=== PATIENT | female | born 1995 | race Two or more races ===

== ENCOUNTER 2022-06-28 05:21 | Emergency (ER) | payer OTHER ==
[~2022-06-28] VITALS: Ht 157.5 cm; Wt 52.2 kg
[2022-06-28 06:21] VITALS: BP 113/69
--- NOTE | 2022-06-28 06:21 | NUR ---
DR. JERMAN WAY AT PT'S BEDSIDE
--- NOTE | 2022-06-28 06:21 | NUR ---
BIBS FOR C/O SORETHROAT X 3 DAYS. TESTED POSITIVE FOR COVID. PT A/OX4. TOLERATING R/A WELL WITH NO RESP DISTRESS. SAFETY MEASURES IN PLACE.
--- NOTE | 2022-06-28 06:37 | NUR ---
COVID SWAB COLLECTED
--- NOTE | 2022-06-28 06:46 | NUR ---
STREP SWAB COLLECTED AND SENT TO LAB
[2022-06-28] MEDS ORDERED: IBUPROFEN 600 MG TABLET ONE (07:33)
[2022-06-28] MEDS: IBUPROFEN 600 MG TABLET PO ONE (07:35)
[2022-06-28] MEDS ORDERED: PENI500T PO (07:44)
[2022-06-28] MEDS ORDERED: IBUP-1955 PO (07:45)
--- NOTE | 2022-06-28 07:54 | NUR ---
Patient discharged to home in stable condition. Written and verbal after care instructions given. Patient verbalizes understanding of instruction.
== END 2022-06-28 07:54 | disposition home or self-care (01) ==
LOC: ER 05:21
DX: U07.1 COVID-19 (principal); J02.9 Acute pharyngitis, unspecified
CPT/HCPCS: 99283; 87426; 87070; 87880; C9803; 86403-TC

== ENCOUNTER 2024-10-30 19:29 | Emergency (ER) | payer OTHER ==
[~2024-10-30] VITALS: Ht 167.6 cm; Wt 54.4 kg
[~2024-10-30 19:29] MED LIST: IBUP-1955 PO
[2024-10-30 20:31] VITALS: BP 120/73; TEMP 98; O2SAT 99
== END 2024-10-30 21:01 | disposition home or self-care (01) ==
LOC: ER 19:33
DX: M54.50 Low back pain, unspecified (principal); R07.89 Other chest pain; V43.52XA Car driver injured in collision with other type car in traffic accident, initial encounter; Y93.89 Activity, other specified; Y92.488 Other paved roadways as the place of occurrence of the external cause; Y99.8 Other external cause status

== ENCOUNTER 2025-03-06 10:20 | Emergency (ER) | payer MEDICAID ==
[~2025-03-06] VITALS: Ht 157.5 cm; Wt 54.4 kg
[2025-03-06] MEDS ORDERED: KETOROLAC TROMETHAMINE 15 MG/ML VIAL ONE (11:13)
[2025-03-06] MEDS: KETOROLAC TROMETHAMINE 15 MG/ML VIAL IV ONE (11:50)
[2025-03-06 12:01] LABS: BASOPHILS % (AUTO) 0.6 % (0.0-2.0); EOSINOPHILS # (AUTO) 0.1 K/uL (0.0-0.7); EOSINOPHILS % (AUTO) 1.2 % (0.0-6.0); HEMATOCRIT 38 % (33-45); HEMOGLOBIN 12.6 g/dL (11.5-14.8); LYMPHOCYTES # (AUTO) 1.1 K/uL (0.8-4.8); LYMPHOCYTES % (AUTO) 23.6 % (20.0-44.0); MEAN CORPUSCULAR HEMOGLOBIN 29 PG (26.0-33.0); MEAN CORPUSCULAR HGB CONC 34 g/dl (31.0-36.0); MEAN CORPUSCULAR VOLUME 85 fL (82-100); MONOCYTES # (AUTO) 0.3 K/uL (0.1-1.30); MONOCYTES % (AUTO) 6.3 % (2.0-12.0); NEUTROPHILS # (AUTO) 3.1 K/uL (1.8-8.9); NEUTROPHILS % (AUTO) 68.3 % (43.0-81.0); PLATELET COUNT (AUTO) 263 K/uL (150-450); RED BLOOD CELL COUNT(AUTO) 4.43 MIL/uL (4.0-5.2); RED CELL DISTRIBUTION WIDTH 12.9 % (11.5-15.0); WHITE BLOOD COUNT (AUTO) 4.6 K/uL (4.3-11.0)
[2025-03-06 12:08] LABS: APPEARANCE,URINE TURBID (CLEAR); BILIRUBIN,URINE 1+ (NEGATIVE); BLOOD, URINE 2+ Ery/uL (NEGATIVE); COLOR,URINE BROWN (YELLOW); KETONES,URINE 2+ mg/dL (NEGATIVE); LEUKOCYTE ESTERASE ,URINE 1+ (NEGATIVE); NITRITE, URINE POSITIVE (NEGATIVE); PROTEIN,URINE 1+ mg/dl (NEGATIVE); UGLUCOSE NEGATIVE (NEGATIVE); UROBILINOGEN,URINE 0.2 EU/dL (0.2)
[2025-03-06 12:10] LABS: PREGNANCY TEST URINE QUAL NEG (NEGATIVE)
[2025-03-06 12:11] LABS: CREATININE 0.6 mg/dL (0.6-1.3); POTASSIUM 3.7 mmol/L (3.5-5.1)
[2025-03-06] MEDS ORDERED: NITROFURANTOIN/MONOHYDRATE MACROCRYSTALS 100 MG CAPSULE ONE (12:26)
[2025-03-06] MEDS: NITROFURANTOIN/MONOHYDRATE MACROCRYSTALS 100 MG CAPSULE PO ONE (12:29)
[2025-03-06 12:38] LABS: BILIRUBIN,DIRECT 0.2 mg/dL (0.0-0.2); TOTAL PROTEIN, SERUM 7.2 g/dL (6.4-8.2)
[2025-03-06 13:14] LABS: ADD URINE CULTURE YES; BACTERIA,URINE 2+ /HPF (None Seen)
[2025-03-06] MEDS ORDERED: NITR100C6 PO (13:21)
[2025-03-06 13:40] VITALS: BP 113/60; TEMP 97.3; O2SAT 98
== END 2025-03-06 13:40 | disposition home or self-care (01) ==
LOC: ER 12:24
DX: N39.0 Urinary tract infection, site not specified (principal); R10.2 Pelvic and perineal pain
CPT/HCPCS: 36415; 80048-TC; 80076-TC; 81001; 83690-TC; 84702-TC; 84703-TC; 85025-TC; 87086-TC; J1885